=== PATIENT | female | born 1980 | race Caucasian/White ===

== ENCOUNTER → 2017-10-27 | Outpatient (CLI) | payer BC, OTHER ==
[~2017-10-27] MED LIST: ANUCORT-HC25 MG RECTAL; HYDROCODON-ACE1 EACH; IBUPROFEN 800800 M1; NORCO 5-325 TA1 EACH PO; SENNA
== END ==
LOC: M.ULTRA 13:00
DX: E04.9 Nontoxic goiter, unspecified (principal); R13.10 Dysphagia, unspecified; M06.9 Rheumatoid arthritis, unspecified; E78.00 Pure hypercholesterolemia, unspecified

== ENCOUNTER → 2017-12-20 | Outpatient (CLI) | payer BC, OTHER ==
[2017-12-20 12:29] LABS: CREATININE 0.9 mg/dL (0.6-1.3)
== END ==
LOC: M.LAB 11:45 → M.CT 13:00
PROVIDERS: Registered Nurse Diabetes Educator
DX: R10.30 Lower abdominal pain, unspecified (principal)

== ENCOUNTER → 2018-02-21 | Outpatient (CLI) | payer BC, OTHER | LOC: M.ULTRA 12-24 11:23 | DX: N83.202 Unspecified ovarian cyst, left side (principal); D18.03 Hemangioma of intra-abdominal structures ==

== ENCOUNTER → 2021-01-31 | Outpatient (CLI) | payer OTHER | LOC: M.RAD 08:51 | PROVIDERS: ATTEND Registered Nurse Diabetes Educator | DX: Z13.6 Encounter for screening for cardiovascular disorders (principal); I25.10 Atherosclerotic heart disease of native coronary artery without angina pectoris ==